=== PATIENT | female | born 1985 | race Caucasian/White ===

== ENCOUNTER → 2016-09-12 | Outpatient (CLI) | payer BC ==
[~2016-09-12] MED LIST: GLC500 PO; OMEP40CA PO; RANI300T2 PO
== END | disposition home or self-care (01) ==
LOC: C.PAPS 11:00
PROVIDERS: ATTEND Obstetrics & Gynecology
DX: Z01.419 Encounter for gynecological examination (general) (routine) without abnormal findings (principal)

== ENCOUNTER → 2017-01-04 | Outpatient (CLI) | payer BC ==
--- NOTE | 2017-01-04 17:23 | DIAGNOSTIC IMAGING REPORT ---
SOFT TIS HEAD/NECK-THYROID HISTORY: Multinodular goiter MULTINODULAR LEFT GOITER COMPARISON: 11/17/2014 FINDINGS: Right lobe: Post thyroidectomy Left lobe: Maximum dimension 5 x 2.2 cm. This is unchanged. Multiple small thyroid nodules the largest of which measures 8 mm. These are unchanged. No new or interval finding. Isthmus: No nodules. IMPRESSION: 1. Status post right thyroidectomy. 2. Multinodular left thyroid lobe unchanged from the prior study. All hypoechoic nodules are low suspicion and stable The above report was generated using voice recognition software. It may contain grammatical, syntax or spelling errors. Electronically signed by: Chuck Lugo M.D. 01/04/2017 5:22 PM Dictated Date/Time: 01/04/2017 5:20 PM
== END | disposition home or self-care (01) ==
LOC: C.ULTR 15:52
PROVIDERS: ATTEND Internal Medicine
DX: E04.2 Nontoxic multinodular goiter (principal); E89.0 Postprocedural hypothyroidism

== ENCOUNTER → 2017-09-01 | Outpatient (CLI) | payer BC, OTHER | END | disposition home or self-care (01) | LOC: C.RDSM 10:15 | PROVIDERS: ATTEND Physical Medicine & Rehabilitation Sports Medicine | DX: M25.561 Pain in right knee (principal) ==

== ENCOUNTER → 2017-09-06 | Outpatient (CLI) | payer OTHER ==
--- NOTE | 2017-09-06 20:57 | DIAGNOSTIC IMAGING REPORT ---
RIGHT KNEE MRI HISTORY: RT KNEE PAIN, RT KNEE INJURY COMPARISON STUDY: Right knee 09/01/2017. TECHNIQUE: Multiplanar multisequence MRI of the right knee was performed according to standard department protocol without the use of contrast. FINDINGS: Menisci: The medial and lateral menisci are intact. Ligaments: The anterior and posterior cruciate ligaments are intact. The medial and lateral collateral ligaments are normal in appearance. Extensor mechanism: The quadriceps tendon and patellar ligament are intact. Articular cartilage and bone: No fracture or dislocation. Small tricompartmental marginal osteophytes are noted. Focal full-thickness cartilage defect at the median ridge of the patella measuring 5 mm. There is underlying subchondral cystic change at this location. As also moderate focal cartilage thinning seen within the lateral trochlea measuring 8 mm in size. There is associated subchondral cystic change at this location. These lies are consistent with patellar chondromalacia. There is mild lateral subluxation of the patella and a shallow patellar groove. Joint effusion: None. Soft tissues: Intact. IMPRESSION: 1. Moderate patellar chondromalacia. 2. Mild lateral subluxation of the patella with a shallow patellar groove. 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 Electronically signed by: Felipe Gillespie M.D. 09/06/2017 8:56 PM Dictated Date/Time: 09/06/2017 8:51 PM
== END | disposition home or self-care (01) ==
LOC: C.MRI 19:50
PROVIDERS: ATTEND Physical Medicine & Rehabilitation Sports Medicine
DX: M25.561 Pain in right knee (principal); T14.8XXA Other injury of unspecified body region, initial encounter